=== PATIENT | female | born 1965 | race African-American/Black ===

== ENCOUNTER 2017-01-25 17:38 | Emergency (ER) | payer MEDICAID, OTHER ==
[~2017-01-25] VITALS: Ht 167.6 cm; Wt 139.5 kg
[~2017-01-25 17:38] MED LIST: ADVA250A INH; ALBU8I INH; MEDR4PAK3 PO; OSEL75 PO; PROM6.257 PO
[2017-01-25 17:39] VITALS: BP 207/98; PULSE 93; RESP 20; TEMP 98.7; O2SAT 95
[2017-01-25] MEDS ORDERED: water pill (18:28)
[2017-01-25] MEDS ORDERED: ALBUAER3 INH (18:28)
[2017-01-25] MEDS ORDERED: cholesterol (18:28)
[2017-01-25] MEDS ORDERED: SPIRCAP INH (18:28)
[2017-01-25] MEDS ORDERED: ADVA500A INH (18:28)
[2017-01-25 18:29] VITALS: BP 162/71; PULSE 91; RESP 19; O2SAT 97
[2017-01-25 18:46] LABS: AUTOMATED NEUTROPHIL # 4.6 TH/MM3 (1.8-7.7); BASOPHIL % 0.6 % (0.0-2.0); EOSINOPHIL # 0.2 TH/MM3 (0-0.4); EOSINOPHIL % 3.1 % (0.0-4.0); HEMATOCRIT 37.1 % (35.0-46.0); HEMO FLAGS DIFF FINAL; LYMPH % 26.2 % (9.0-44.0); LYMPHOCYTE # 1.9 TH/MM3 (1.0-4.8); MEAN CELL VOLUME 81.7 FL (80.0-100.0); MEAN CORPUSCULAR HGB CONC 31.9 % (32.0-36.0); MONO % 6.3 % (0.0-8.0); NEUT % 63.8 % (16.0-70.0); PLATELET COUNT 318 TH/MM3 (150-450); RED BLOOD COUNT 4.54 MIL/MM3 (4.00-5.30); WHITE BLOOD COUNT 7.2 TH/MM3 (4.0-11.0)
[2017-01-25 19:00] LABS: INTERNATIONAL NORMALIZED RATIO 0.9 RATIO
[2017-01-25 19:07] LABS: CREATINE KINASE 258 U/L (26-192)
[2017-01-25 19:19] LABS: CKMB 1.3 NG/ML (0.5-3.6)
--- NOTE | 2017-01-25 19:26 | PD ---
HPI Chief Complaint: Numbness/Tingling Time Seen by Provider: 19:00 Travel History International Travel<30 days: No Contact w/Intl Traveler<30days: No Traveled to known affect area: No History of Present Illness HPI 51-year-old female presents to the emergency department for evaluation of intermittent paresthesias to the bilateral upper extremities and right lower extremity that has been intermittent for the past month. She states that her right leg paresthesias will be worst in the morning if she sits on the side of the bed. Within approximately 5 minutes, it'll resolve and she is able to walk. She's got no paresthesias in the right lower extremity at this time. She reports intermittent paresthesias to the bilateral upper extremities, in the hands, that it been ongoing for the past month. She also reports intermittent headaches for the past 4 months. She states it is throbbing bilateral headache. She has a mild headache at this time. She states that when she has a severe headache, she'll visual changes, but no visual changes at this time. 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 She denies any chest pain at this time. No shortness of breath. No abdominal pain. No nausea, vomiting, diarrhea. Patient was reportedly sent here by her primary care physician for evaluation of intermittent paresthesias, hypertension. Patient denies any history of CVA. She is currently on Diltazem, medication for cholesterol and "water pill"., [facility] Past Medical History Asthma: Yes Diabetes: Yes Patient Takes Glucophage: No Diminished Hearing: No Hypertension: Yes Respiratory: Yes Tetanus Vaccination: Unknown Influenza Vaccination: No ?: Not Tubal Ligation: Yes Social History Alcohol Use: No Tobacco Use: No Substance Use: No Allergies-Medications (Allergen,Severity, Reaction): Coded Allergies: No Known Allergies (Verified , 04/19/14) Reported Meds & Prescriptions Reported Meds & Active Scripts Active Reported [cholesterol] [water pill] Spiriva Handihaler (Tiotropium Inh) 18 Mcg Cap 18 Mcg INH DAILY 1 capsule = 18 mcg Proair Hfa 8.5 GM Inh (Albuterol Sulfate) 90 Mcg/Act Aer 2 Puff INH Q4-6H PRN 108 mcg/actuation Advair Diskus Inh (Fluticasone-Salmeterol Inh) 500-50 Mcg/Blist Aer 1 Puff INH BID Rinse mouth after use. Review of Systems Except as stated in HPI: all other systems reviewed are Neg Physical Exam Narrative GENERAL: Well-nourished, well-developed morbidly obese female patient, afebrile SKIN: Focused skin assessment warm/dry. HEAD: Normocephalic. Atraumatic. EYES: No scleral icterus. No injection or drainage. NECK: Supple, trachea midline. No JVD or lymphadenopathy. CARDIOVASCULAR: Regular rate and rhythm without murmurs, gallops, or rubs. Bilateral radial and pedal pulses 2+. RESPIRATORY: Breath sounds equal bilaterally. No accessory muscle use. Lungs sounds are clear to auscultation. GASTROINTESTINAL: Abdomen soft, non-tender, nondistended. MUSCULOSKELETAL: No cyanosis, or edema. Bilateral upper and lower extremity strength 5/5. All extremities are neurovascularly intact. BACK: Nontender without obvious deformity. No CVA tenderness. NEUROLOGICAL: Awake and alert. Cranial nerves II through XII intact. Motor and sensory grossly within normal limits. Five out of 5 muscle strength in all muscle groups. Normal speech. Data Data Last Documented VS Vital Signs Date Time Temp Pulse Resp B/P (MAP) Pulse Ox O2 Delivery O2 Flow Rate FiO2 01/25/17 19:30 84 16 140/72 (94) 93 Room Air 01/25/17 17:39 98.7 Orders Orders Electrocardiogram (01/25/17 17:49) Complete Blood Count With Diff (01/25/17 17:49) Basic Metabolic Panel (Bmp) (01/25/17 17:49) Ckmb (Isoenzyme) Profile (01/25/17 17:49) Troponin I (01/25/17 17:49) Prothrombin Time / Inr (Pt) (01/25/17 18:29) CKMB (01/25/17 18:35) CKMB% (01/25/17 18:35) Urinalysis - C+S If Indicated (01/25/17 19:19) Ct Brain W/O Iv Contrast(Rout) (01/25/17 19:19) Ecg Monitoring (01/25/17 19:19) Iv Access Insert/Monitor (01/25/17 19:19) Oximetry (01/25/17 19:19) Sodium Chloride 0.9% Flush (Ns Flush) (01/25/17 19:30) Labs Laboratory Tests Test 01/25/17 18:35 White Blood Count 7.2 TH/MM3 Red Blood Count 4.54 MIL/MM3 Hemoglobin 11.8 GM/DL Hematocrit 37.1 % Mean Corpuscular Volume 81.7 FL Mean Corpuscular Hemoglobin 26.0 PG Mean Corpuscular Hemoglobin Concent 31.9 % Red Cell Distribution Width 17.0 % Platelet Count 318 TH/MM3 Mean Platelet Volume 8.0 FL Neutrophils (%) (Auto) 63.8 % Lymphocytes (%) (Auto) 26.2 % Monocytes (%) (Auto) 6.3 % Eosinophils (%) (Auto) 3.1 % Basophils (%) (Auto) 0.6 % Neutrophils # (Auto) 4.6 TH/MM3 Lymphocytes # (Auto) 1.9 TH/MM3 Monocytes # (Auto) 0.5 TH/MM3 Eosinophils # (Auto) 0.2 TH/MM3 Basophils # (Auto) 0.0 TH/MM3 CBC Comment DIFF FINAL Differential Comment Prothrombin Time 10.0 SEC Prothromb Time International Ratio 0.9 RATIO Blood Urea Nitrogen 14 MG/DL Creatinine 0.99 MG/DL Random Glucose 108 MG/DL Calcium Level 9.2 MG/DL Sodium Level 139 MEQ/L Potassium Level 4.1 MEQ/L Chloride Level 103 MEQ/L Carbon Dioxide Level 29.7 MEQ/L Anion Gap 6 MEQ/L Estimat Glomerular Filtration Rate 72 ML/MIN Total Creatine Kinase 258 U/L Creatine Kinase MB 1.3 NG/ML Creatine Kinase MB % 0.5 % Troponin I LESS THAN 0.02 NG/ML MDM Medical Decision Making Medical Screen Exam Complete: Yes Emergency Medical Condition: Yes Medical Record Reviewed: Yes Interpretation(s) head ct- normal examination Differential Diagnosis Electrolyte abnormality versus intracranial abnormality versus dehydration versus neuropathy Narrative Course 51-year-old female presents to the emergency department for evaluation of intermittent bilateral hand paresthesias and right leg paresthesias for the past month. She also reports intermittent headache for the past 4 months. She was sent here by her primary care physician for evaluation. EKG, CBC, BMP, CK, troponin, UA, PT/INR, CT of the brain without contrast are ordered and pending. EKG shows sinus rhythm, heart rate 94, no acute ST changes. CBC is unremarkable. BMP is no acute abnormality. CK is 258. Troponin is less than 0.02. PT/INR 10.9/0.9. CT of the brain is normal. I discussed the case and findings with my attending physician, Dr. Khanna. Symptoms and physical do not fit CVA or TIA. Dr. Khanna examine patient has small. She is instructed to follow-up with her primary care physician. Imaging and lab work is reassuring here. Blood pressure is 140/72. Patient verbalizes agreement and understanding. The patient was discharged in stable condition with instructions, including return instructions and follow up instructions. Diagnosis Primary Impression: Cephalgia Qualified Codes: R51 - Headache Additional Impressions: Paresthesia of both hands Paresthesia of right lower extremity Referrals: Primary Care Physician call for appointment Patient Instructions: General Headache (ED), General Instructions, Paresthesia (ED) Additional Instructions: Follow-up with your primary care physician. Return to the emergency department for any acute worsening of symptoms. Med/Other Pt SpecificInfo: No Change to Meds Disposition: 01 DISCHARGE HOME Condition: Stable Suni Duran Jan 25, 2017 19:26
[2017-01-25 19:30] VITALS: BP 140/72; PULSE 84; RESP 16; O2SAT 93
[2017-01-25] MEDS ORDERED: SODIUM CHLORIDE 0.9% FLUSH 10 ML FLUSH IVF PRN (19:30)
[2017-01-25 19:32] LABS: ANION GAP 6 MEQ/L (5-15); BICARBONATE 29.7 MEQ/L (21.0-32.0); BLOOD UREA NITROGEN 14 MG/DL (7-18); CHLORIDE 103 MEQ/L (98-107); GLOMERULAR FILTRATION RATE 72 ML/MIN (>89); POTASSIUM 4.1 MEQ/L (3.5-5.1); SODIUM (NA) 139 MEQ/L (136-145)
--- NOTE | 2017-01-25 21:29 | RADRPT ---
EXAM DATE/TIME: 01/25/2017 20:07 [place] COMPARISON: CT BRAIN W/O CONTRAST, January 21, 2010, 20:17. INDICATIONS : Right upper and lower extremity numbness with headace for two months RADIATION DOSE: 48.51 CTDIvol (mGy) MEDICAL HISTORY : Hypertension. Diabetes SURGICAL HISTORY : Tubal ligation. ENCOUNTER: Initial ACUITY: 2 months PAIN SCALE: 4/10 LOCATION: cranial TECHNIQUE: Multiple contiguous axial images were obtained of the head. Using automated exposure control and adj ustment of the mA and/or kV according to patient size, radiation dose was kept as low as reasonably a chievable to obtain optimal diagnostic quality images. DICOM format image data is available electro nically for review and comparison. FINDINGS: CEREBRUM: The ventricles are normal for age. No evidence of midline shift, mass lesion, hemorrhage or acute in farction. No extra-axial fluid collections are seen. POSTERIOR FOSSA: The cerebellum and brainstem are intact. The 4th ventricle is midline. The cerebellopontine angle i s unremarkable. EXTRACRANIAL: The visualized portion of the orbits is intact. SKULL: The calvaria is intact. No evidence of skull fracture. CONCLUSION: Normal examination. Aldo Trejo MD on January 25, 2017 at 21:27 Board Certified Radiologist. This report was verified electronically.
--- NOTE | 2017-01-25 21:37 | PD ---
Physical Exam Date Seen by Provider: Jan 25, 2017 Narrative This patient was sent here by her primary care provider for the evaluation of intermittent paresthesias. Data Data Last Documented VS Vital Signs Date Time Temp Pulse Resp B/P (MAP) Pulse Ox O2 Delivery O2 Flow Rate FiO2 01/25/17 19:30 84 16 140/72 (94) 93 Room Air 01/25/17 17:39 98.7 Orders Orders Electrocardiogram (01/25/17 17:49) Complete Blood Count With Diff (01/25/17 17:49) Basic Metabolic Panel (Bmp) (01/25/17 17:49) Ckmb (Isoenzyme) Profile (01/25/17 17:49) Troponin I (01/25/17 17:49) Prothrombin Time / Inr (Pt) (01/25/17 18:29) CKMB (01/25/17 18:35) CKMB% (01/25/17 18:35) Urinalysis - C+S If Indicated (01/25/17 19:19) Ct Brain W/O Iv Contrast(Rout) (01/25/17 19:19) Ecg Monitoring (01/25/17 19:19) Iv Access Insert/Monitor (01/25/17 19:19) Oximetry (01/25/17 19:19) Sodium Chloride 0.9% Flush (Ns Flush) (01/25/17 19:30) Labs Laboratory Tests Test 01/25/17 18:35 White Blood Count 7.2 TH/MM3 Red Blood Count 4.54 MIL/MM3 Hemoglobin 11.8 GM/DL Hematocrit 37.1 % Mean Corpuscular Volume 81.7 FL Mean Corpuscular Hemoglobin 26.0 PG Mean Corpuscular Hemoglobin Concent 31.9 % Red Cell Distribution Width 17.0 % Platelet Count 318 TH/MM3 Mean Platelet Volume 8.0 FL Neutrophils (%) (Auto) 63.8 % Lymphocytes (%) (Auto) 26.2 % Monocytes (%) (Auto) 6.3 % Eosinophils (%) (Auto) 3.1 % Basophils (%) (Auto) 0.6 % Neutrophils # (Auto) 4.6 TH/MM3 Lymphocytes # (Auto) 1.9 TH/MM3 Monocytes # (Auto) 0.5 TH/MM3 Eosinophils # (Auto) 0.2 TH/MM3 Basophils # (Auto) 0.0 TH/MM3 CBC Comment DIFF FINAL Differential Comment Prothrombin Time 10.0 SEC Prothromb Time International Ratio 0.9 RATIO Blood Urea Nitrogen 14 MG/DL Creatinine 0.99 MG/DL Random Glucose 108 MG/DL Calcium Level 9.2 MG/DL Sodium Level 139 MEQ/L Potassium Level 4.1 MEQ/L Chloride Level 103 MEQ/L Carbon Dioxide Level 29.7 MEQ/L Anion Gap 6 MEQ/L Estimat Glomerular Filtration Rate 72 ML/MIN Total Creatine Kinase 258 U/L Creatine Kinase MB 1.3 NG/ML Creatine Kinase MB % 0.5 % Troponin I LESS THAN 0.02 NG/ML MDM Supervised Visit with TEA: Yes Narrative Course I, Dr. Khanna, have reviewed the advance practice practitioner's documentation and am in agreement, met with the patient face to face, made the diagnosis, and the medical decision making was done by me. *My assessment and Findings: This patient was sleeping but easily arousable. She is awake and alert and fully oriented. She is moving all 4 extremities equally. Park Khanna MD Jan 25, 2017 21:37
[2017-01-25 21:58] VITALS: BP 169/76; PULSE 86; RESP 16; O2SAT 99
--- NOTE | 2017-01-26 14:57 | EKG ---
Date Performed: 01/25/2017 Time Performed: 18:02:01 PTAGE: 51 years EKG: Sinus rhythm NORMAL ECG INTERPRETATION BASED ON A DEFAULT AGE OF 40 YEARS PREVIOUS TRACING : 04/23/1997 17.05 Since prior tracing, sinus rate is slower. DOCTOR: Steven Gonzalez Interpretating Date/Time 01/26/2017 14:56:15
== END 2017-01-25 22:10 | disposition home or self-care (01) ==
LOC: NEPE 17:38
DX: R51 Headache (principal); R20.2 Paresthesia of skin; J45.909 Unspecified asthma, uncomplicated; E11.9 Type 2 diabetes mellitus without complications; I10 Essential (primary) hypertension; Z79.52 Long term (current) use of systemic steroids; Z79.899 Other long term (current) drug therapy
CPT/HCPCS: 70450; 80048; 82550; 82552; 84484; 85025; 85610; 93005; 99285